=== PATIENT | female | born 1955 | race Caucasian/White ===

== ENCOUNTER → 2018-10-10 | Outpatient (CLI) | LOC: GIMAGING 14:09 | PROVIDERS: ATTEND Registered Nurse | DX: J40 Bronchitis, not specified as acute or chronic (principal) | CPT/HCPCS: 71046-PO ==

== ENCOUNTER 2018-10-11 07:28 | Emergency (ER) | payer MEDICAID ==
[2018-10-11 07:34] VITALS: BP 143/86
--- NOTE | 2018-10-11 07:48 | EDPHY ---
H & P Stated Complaint: Tested flu + yesterday, has worsening symptoms. Time Seen by Provider: 10/11/18 07:37 HPI/ROS: Chief Complaint: Cough, chills, positive flu HPI: 62-year-old woman with no significant medical problems has had flu-like symptoms for the last 3 and half days. She has a cough productive of brownish sputum, chills, malaise fatigue, body aches, no nausea or vomiting. No chest pain, some mild shortness of breath. She was seen at urgent care yesterday. She had a positive influenza test. Yesterday she was noted to be wheezing and was hypoxemic at urgent care. They gave her albuterol inhaler and her breathing is much better. The obtain a chest x-ray which showed possible bronchitis but no definitive pneumonia. They did start her on azithromycin. They did not start her on Tamiflu. They told her that if she was not feeling better today to go to the emergency department. Last took some Tylenol 12 hr ago. She has been drinking Ensure and fluids but not eating solids. No nausea or vomiting. No shortness of breath. ROS: 10 systems were reviewed and were negative except those elements noted in the HPI. PMH: Denies Social History: No smoking, no alcohol, no recreational drug use Family History: non-contributory Physical Exam: Gen: Awake, Alert, No Distress HEENT: Nose: no rhinorrhea Eyes: PERRLA, EOMI Mouth: Moist mucosa Neck: Supple, no JVD Chest: nontender, lungs clear to auscultation Heart: S1, S2 normal, no murmur Abd: Soft, non-tender, no guarding Back: no CVA tenderness, no midline tenderness Ext: no edema, non-tender Skin: no rash Neuro: CN II-XII intact, Sensation grossly intact, Strength 5/5 in bilateral upper and lower extremities - Personal History Current Tetanus Diphtheria and Acellular Pertussis (TDAP): Unsure - Medical/Surgical History Hx Asthma: No Hx Chronic Respiratory Disease: No Hx Diabetes: No Hx Cardiac Disease: No Hx Renal Disease: No Hx Cirrhosis: No Hx Alcoholism: No Hx HIV/AIDS: No Hx Splenectomy or Spleen Trauma: No Other PMH: Denies - Social History Smoking Status: Never smoked Constitutional: Initial Vital Signs Temperature (C) 36.6 C 10/11/18 07:29 Heart Rate 100 02/09/19 07:29 Respiratory Rate 18 10/11/18 07:29 Blood Pressure 143/86 H 10/11/18 07:29 O2 Sat (%) 95 10/11/18 07:29 O2 Delivery Mode Room Air Allergies/Adverse Reactions: No Known Allergies Allergy (Unverified 10/11/18 07:34) Home Medications: Medication Instructions Recorded NK [No Known Home Meds] 10/11/18 Medical Decision Making - Diagnostics Imaging Results: Imaging Impressions Chest X-Ray 10/11/18 07:44 Impression: 1. Persistent airways disease without pneumonia. 2. Minor atelectasis versus scarring at the left lung base. ED Course/Re-evaluation: A healthy 62-year-old woman with positive influenza test yesterday. She has persistent malaise body aches and subjective fevers. Her vital signs including her oxygen saturations respiratory rate and temperature are completely normal here. She has not had any antipyretics for nearly 12 hr. Her lungs are clear. She was under the impression that she should be feeling better today since she started on the azithromycin. Plan will be to obtain chest x-ray to rule out infiltrate however she is already on antibiotics and has normal oxygenation and vital signs. I have informed her that given that she has a positive influenza test she should expect to have symptoms for 7-10 days. She is not alternating Tylenol and Motrin affectively. She does not meet CDC criteria for Tamiflu at this time and is otherwise well-appearing. She is certainly not septic or toxic in appearance. I have given her realistic expectations of how she should be feeling in progressing. She is tolerating p.o. And maintaining hydration. Departure - Departure Disposition: Home, Routine, Self-Care Clinical Impression: Influenza Condition: Good Instructions: Influenza (ED) Additional Instructions: Yor illness in total should last 7-10 days. Alternate acetaminophen (1000 mg) with ibuprofen (400 mg) every 4 hours as needed for fevers, chills, aches or pain. Continue taking your medications as prescribed at urgent care. Follow-up with primary care physician in about a week if symptoms are not improving. Return to the emergency department for worsening shortness of breath, uncontrolled fevers or chills, uncontrolled nausea vomiting, lightheadedness, fainting, or any other concerns.
== END 2018-10-11 08:48 | disposition home or self-care (01) ==
DX: J11.1 Influenza due to unidentified influenza virus with other respiratory manifestations (principal)